=== PATIENT | male | born 1995 | race Caucasian/White ===

== ENCOUNTER 2021-12-18 07:49 | Outpatient (REF) | payer BC, OTHER, SELFPAY ==
--- NOTE | ~2021-12-18 | MR_ITS ---
EXAMINATION: MR LUMBAR SPINE WITHOUT CONTRAST CLINICAL INFORMATION: 26-year-old with complaints of low back pain and lifting injury 11/15/2021 with bilateral posterior thigh pain. Intervertebral disc degeneration. COMPARISON: None TECHNIQUE: MRI of the lumbar spine was obtained using routine sequences without contrast. FINDINGS: Coronal Alignment: Normal. Sagittal Alignment: Normal. Lumbosacral Junction: Normal. 5 nonrib-bearing lumbar-type vertebral bodies. Vertebral Bodies: Normal height. Disc Spaces and Endplates: [id number] intervertebral disc space height loss at L4-L5 and L5-S1 with disc desiccation at these levels. Remaining lumbar intervertebral discs demonstrate normal height and signal. No significant spondylosis. Endplates appear intact. Spinal Canal: No abnormal developmental findings. Bone Marrow: No significant marrow-replacing process or bone marrow edema. Conus Medullaris: Terminates at L1. Morphology and signal is normal. Intradural Nerve Roots: Within normal limits. L5-S1: Shallow broad-based central to left paramedian disc protrusion with annular fissuring noted with mild encroachment on the left ventral thecal sac without neural impingement. No significant facet arthrosis, canal or neuroforaminal stenosis. L4-L5: Broad-based left paramedian to subarticular disc protrusion with [id number] flattening of the left ventral thecal sac, likely encroaching on the intradural portion of the traversing left L5 nerve root with associated mild left-sided subarticular recess narrowing. No central canal stenosis. No significant facet arthrosis or neuroforaminal stenosis. The remaining lumbar levels demonstrate normal disc contours with no significant facet arthrosis, canal or neuroforaminal stenosis. Paraspinal/Retroperitoneal: The visualized paravertebral soft tissues appear unremarkable. MR/MR lumbar spine wo con IMPRESSION: 1. Discogenic degenerative changes at L4-L5 and L5-S1 with a broad-based left paramedian to subarticular disc protrusion at L4-L5 encroaching on the traversing intradural left L5 nerve root with mild left-sided subarticular recess narrowing. 2. Shallow broad-based central to left paramedian disc protrusion at L5-S1 without neural impingement.
== END 2021-12-18 07:50 | disposition home or self-care (01) ==
LOC: HO.MRI 07:49
PROVIDERS: PCP Physician Assistant; Visit Provider Physician Assistant
DX: M51.36 Other intervertebral disc degeneration, lumbar region (principal)
CPT/HCPCS: 72148

== ENCOUNTER 2022-01-17 16:01 | Outpatient (REF) | payer BC, OTHER, SELFPAY ==
--- NOTE | ~2022-01-17 | US_ITS ---
EXAMINATION: US SCROTUM CLINICAL INFORMATION: Left testicular pain. COMPARISON: None TECHNIQUE: A sonogram of the scrotum was performed assessing fuller-scale appearance and color Doppler flow. Spectral Doppler analysis of the arterial and venous flow were performed in the testes bilaterally. FINDINGS: RIGHT: Right testicle measures 4.1 x 2.4 x 2.8 cm, volume 14.4 mL. Spectral Doppler analysis of the arterial and venous flow is normal in the right testis. There is a peripheral calcification superior to the testes, nonspecific. Right epididymal head is normal No right hydrocele or varicocele is seen. Right epididymal Doppler flow is normal. LEFT: Left testicle measures 4.2 x 2.2 x 2.5 cm, volume 12.1 mL. No focal testicular parenchymal lesions are visualized. Spectral Doppler analysis of the arterial and venous flow is normal in the left testis. Left epididymal head is normal in size. No left hydrocele or varicocele is seen. Left epididymal Doppler flow is normal. US/US scrotum IMPRESSION: Small right epididymal head cysts. Small extrinsic calcification to superior pole of right testes.. Normal ultrasound of testes and left epididymis.
== END 2022-01-17 16:02 | disposition home or self-care (01) ==
LOC: HO.US 16:01
PROVIDERS: Visit Provider Physician Assistant
DX: N50.812 Left testicular pain (principal)
CPT/HCPCS: 76870

== ENCOUNTER 2022-03-16 14:58 | Outpatient (REF) | payer BC, SELFPAY ==
[2022-03-16 19:23] LABS: MANUAL DIFF FLAG NO
[2022-03-16 19:30] LABS: Basophils Percent Auto 0.6 % (0-2); Eosinophils Absolute Auto 0.1 X10*3/uL (0.0-0.4); Eosinophils Percent Auto 1.1 % (0-4); Hematocrit 43.9 % (42.0-52.0); Hemoglobin 15.4 g/dl (14.0-18.0); Imm Gran Abs Auto 0.02 X10*3/uL (0.00-0.03); Imm Gran Pct Auto 0.3 % (0.0-0.4); Lymphocytes Absolute Auto 2.1 X10*3/uL (1.2-4.9); Lymphocytes Percent Auto 28.5 % (20-40); Mean Corpuscular HGB Conc 35.1 g/dl (31.0-36.0); Mean Corpuscular Hemoglobin 29.3 pg (27.0-33.0); Mean Corpuscular Volume 83.6 fL (80.0-98.0); Mean Platelet Volume 10.3 fL (9.4-12.4); Monocytes Absolute Auto 0.5 X10*3/uL (0.1-1.2); Monocytes Percent Auto 6.8 % (2-11); Neutrophils Absolute Auto 4.5 x10*3/uL (2.0-8.3); Neutrophils Percent Auto 62.7 % (45-73); Platelet Count 345 X10*3/uL (160-400); Red Blood Count 5.25 X10*6/uL (4.60-5.80); Red Cell Distribution Width 11.7 % (11.0-16.0); White Blood Count 7.2 X10*3/uL (4.8-10.8)
[2022-03-16 19:37] LABS: Estimated Average Glucose 97 mg/dL
[2022-03-16 19:49] LABS: Alanine Aminotransferase 59 U/L (0-40); Albumin Level 5.1 g/dL (3.5-5.0); Alkaline Phosphatase 56 U/L (39-117); Anion Gap 16 (12-20); Aspartate Amino Transferase 32 U/L (5-37); Bilirubin Total 0.8 mg/dL (0.0-1.0); Blood Urea Nitrogen 12 mg/dL (9-16); Calcium 10.2 mg/dL (8.4-10.2); Carbon Dioxide 25 mmol/L (22-29); Chloride 104 mmol/L (96-108); Cholesterol 188 mg/dL; Estimated Glomerular Filt Rate > 60; Glucose Random 82 mg/dL (60-115); HDL Cholesterol 52 mg/dL; Iron 124 mcg/dL (45-160); LDL Cholesterol Calculated 127 mg/dl; Percent Iron Saturation 37 % (15-50); Potassium 4.5 mmol/L (3.3-5.1); Sodium 140 mmol/L (135-145); Total Iron Binding Capacity 337 mcg/dL (228-428); Total Protein 7.6 g/dL (6.5-8.0); Triglycerides 49 mg/dL; Unsaturated Iron Binding 213 ug/dL
[2022-03-16 20:07] LABS: Ferritin 122 ng/mL (20-250); Free T4 (Free Thyroxine) 1.02 ng/dL (0.71-1.85); Thyroid Stimulating Hormone 0.47 uIU/mL (0.32-4.0); Vitamin D 25-OH Total 15.2 ng/mL (>30)
[2022-03-16 20:20] LABS: Folate 14.9 ng/mL (> or = 4.0); Vitamin B12 338 pg/mL (200-900)
== END 2022-03-16 14:59 | disposition home or self-care (01) ==
LOC: HO.MANLDS 14:58
PROVIDERS: Visit Provider Internal Medicine
DX: Z00.01 Encounter for general adult medical examination with abnormal findings (principal); R53.83 Other fatigue; Z13.220 Encounter for screening for lipoid disorders; Z13.228 Encounter for screening for other metabolic disorders; Z13.29 Encounter for screening for other suspected endocrine disorder; Z13.1 Encounter for screening for diabetes mellitus
CPT/HCPCS: 36415; 80053; 80061; 82306; 82607; 82728; 82746; 83036; 83540; 84439; 84443; 85025

== ENCOUNTER 2023-09-27 15:22 | Outpatient (REF) | payer BC, SELFPAY ==
--- NOTE | ~2023-09-27 | XR_ITS ---
EXAMINATION: XR FACIAL BONES XR NASAL BONES CLINICAL INFORMATION: Facial injury. COMPARISON: None available. TECHNIQUE: 3 views of the facial bones were obtained. 3 views of the nasal bones were obtained. FINDINGS: There are mildly displaced fractures of the nasal bones. The frontal sinuses are hypoplastic. The remaining paranasal sinuses are well aerated and clear. No mucosal thickening or air-fluid level is seen. There is no focal bone erosion. Symmetric suture lines are noted. No soft tissue swelling, gas or foreign body is seen. XR/XR nasal bones min 3V IMPRESSION: No displaced fractures are seen of the nasal bones. Electronically signed by: Tam Reyes MD 10/24/2023 02:15 PM EDT RP
--- NOTE | ~2023-09-27 | XR_ITS ---
EXAMINATION: XR FACIAL BONES XR NASAL BONES CLINICAL INFORMATION: Facial injury. COMPARISON: None available. TECHNIQUE: 3 views of the facial bones were obtained. 3 views of the nasal bones were obtained. FINDINGS: There are mildly displaced fractures of the nasal bones. The frontal sinuses are hypoplastic. The remaining paranasal sinuses are well aerated and clear. No mucosal thickening or air-fluid level is seen. There is no focal bone erosion. Symmetric suture lines are noted. No soft tissue swelling, gas or foreign body is seen. XR/XR facial bones min 3V IMPRESSION: No displaced fractures are seen of the nasal bones. Electronically signed by: Tam Reyes MD 10/24/2023 02:15 PM EDT
== END 2023-09-27 15:23 | disposition home or self-care (01) ==
LOC: HO.XRAY 15:22
PROVIDERS: PCP Internal Medicine; Visit Provider Physician Assistant
DX: S09.93XA Unspecified injury of face, initial encounter (principal); Y99.9 Unspecified external cause status; Y92.9 Unspecified place or not applicable; Y93.9 Activity, unspecified
CPT/HCPCS: 70150; 70160

== ENCOUNTER 2024-03-19 15:58 | Outpatient (REF) | payer BC, SELFPAY ==
--- NOTE | ~2024-03-19 | US_ITS ---
CLINICAL HISTORY: CALCULUS OF KIDNEY US Renal Comparison: None Findings: Right kidney normal size and echotexture, 11.3 cm length. Left kidney normal size and echotexture, 11.7 cm length. No hydronephrosis of either kidney. Normal color Doppler Appearance of the liver suggests fatty infiltration. IMPRESSION: 1. Normal kidneys. 2. Hepatic steatosis This document has been electronically signed by: Gavin Cooper MD on 03/21/2024 08:48:58
== END 2024-03-19 15:59 | disposition home or self-care (01) ==
LOC: HO.US 15:58
PROVIDERS: PCP Internal Medicine; Visit Provider Physician Assistant
DX: N20.0 Calculus of kidney (principal)
CPT/HCPCS: 76775

== ENCOUNTER → 2024-03-19 16:00 | Outpatient (BNV) | payer BC, SELFPAY | PROVIDERS: PCP Internal Medicine; Visit Provider Specialist | DX: K76.0 Fatty (change of) liver, not elsewhere classified (principal) | CPT/HCPCS: 76775 ==